=== PATIENT | male | born 1980 | race Caucasian/White ===

== ENCOUNTER 2020-02-16 09:42 | Observation (INO) | payer SELFPAY ==
[~2020-02-16] VITALS: Ht 172.7 cm; Wt 95.0 kg
--- NOTE | 2020-02-16 09:48 | NUR ---
PT AMBUALTED TO ROOM 14 WITH STEADY GIAT
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
[2020-02-16 11:10] LABS: HEMATOCRIT 40.9 % (39.0-50.0); HEMOGLOBIN 13.9 g/dl (14.0-18.0); IMMATURE GRANULOCYTES 0.3 % (0.0-5.0); MEAN CELL VOLUME 89.1 fL CALC (80.0-100.0); MEAN CORPUSCULAR HGB 30.3 pG CALC (26.0-32.0); NEUT# 4.31 thou/uL (1.82-7.42); RED BLOOD COUNT 4.59 mill/uL (4.70-6.10); RED CELL DISTRI WIDTH 12.7 % (11.5-15.5)
[2020-02-16 11:29] LABS: ALBUMIN 4.2 g/dL (3.2-5.0); ALKALINE PHOSPHATASE 68 u/l (38-126); ANION GAP 13 (6-22 (CALC)); BILIRUBIN, TOTAL 0.3 mg/dL (0.0-1.4); BUN 8 mg/dL (9-20); BUN/CREATININE RATIO 10 (12-20 (CALC)); CARBON DIOXIDE 27 mmol/l (22-30); CHLORIDE 106 mmol/l (95-108); CREATININE 0.8 mg/dL (0.7-1.3); GFR > 60 ML/MIN (>=60 (CALC)); GFR FOR AFR.AMER. > 60 ML/MIN (>=60 (CALC)); POTASSIUM 3.7 mmol/l (3.5-5.1); SGOT/AST 24 u/l (17-59); SODIUM 142 mmol/l (137-146); TOTAL PROTEIN 7.2 g/dL (6.3-8.2)
--- NOTE | 2020-02-16 11:30 | NUR ---
RECONNECTED PT TO MONITOR AND PT WAS ABLE TO PROVIDE URINE. CALL LIGHT WITHIN REACH
--- NOTE | 2020-02-16 12:27 | NUR ---
GAVE REPORT TO ILDEFONSO
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
--- NOTE | 2020-02-16 12:41 | NUR ---
PT TRANSPORTED TO [facility] SURG STABLE AND IN NO DISTRESS. CARE ASSUMED TO ILDEFONSO Admission Note Report Given to: ILDEFONSO Transported by: X Wheelchair Stretcher Transported with: X Nurse Transporter Patent IV O2 Foot Caster Location: ICU X MS2
[2020-02-16 12:55] LABS: URINE BILIRUBIN - DIPSTICK NEGATIVE (NEGATIVE); URINE BLOOD DIPSTICK NEGATIVE (NEGATIVE); URINE COLOR YELLOW; URINE GLUCOSE - DIPSTICK NEGATIVE (NEGATIVE); URINE KETONE NEGATIVE (NEGATIVE); URINE LEUK ESTERASE NEGATIVE (NEGATIVE); URINE NITRITE - DIPSTICK NEGATIVE (Negative); URINE PROTEIN - DIPSTICK NEGATIVE (NEG-TRACE); URINE SPECIFIC GRAVITY 1.025; URINE UROBILINOGEN - DIPSTICK 0.2 E.U./dL (0.2)
[2020-02-16 15:00] VITALS: BP 128/84
--- NOTE | 2020-02-16 15:57 | NUR ---
PRIOR TO ENTERING PATIENT ROOM THIS NURSE KNOCKED ON DOOR AND WHEN I ENTERED ROOM PATIENTS WAS FOUND TO BE IN BED WITH PATIENT AT THIS TIME. PATIENT WAS EDUCATED THAT FOR SAFTEY REASONS PATIENT SHOULD BE THE ONLY ONE IN THE PATIENTS BED. PATIENT VERBALIZED UNDERSTANDING AT THIS TIME. PATIENT AT THIS TIME WAS ASKED TO REMOVE ALL UNDER GARMENTS AND TO REMOVE WEDDING RING AT WHICH TIME HE GAVE TO HIS . PATIENT EXPRESSED CONCERN ABOUT THE SURGEON NOT SEEING HIM OF YET TO EXPLAIN WHAT THE ACTUAL PROCEEDURE WILL BE AND IT WAS EXPLAINED TO HIM THE SURGEON WOULD SEE HIM WHEN HE GETS INTO THE SURGERY DEPARTMENT. PATIENT VERBALIZED UNDERSTANDING AND IS READY FOR SURGERY AT THIS TIME.
--- NOTE | 2020-02-16 16:30 | NUR ---
PATIENT RESTING IN BED AT THIS TIME DENIES ANY PAIN CALL LIGHT WITHIN REACH. DR. LANCASTER IN TO SEE PT AND D/C SURGERY AT THIS TIME.
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
== END 2020-02-16 17:01 | disposition left against medical advice (07) | DRG 730 ==
LOC: ED 09:42 → ED-I 10:50 → ED 10:59 → MS2 11:00
PROVIDERS: Emergency Medicine; ADMIT Internal Medicine; ATTEND Internal Medicine
DX: S30.21XA Contusion of penis, initial encounter (principal); F15.10 Other stimulant abuse, uncomplicated; F17.210 Nicotine dependence, cigarettes, uncomplicated; X58.XXXA Exposure to other specified factors, initial encounter; Y93.89 Activity, other specified; Y92.74 Orchard as the place of occurrence of the external cause; Z20.822 Contact with and (suspected) exposure to COVID-19
CPT/HCPCS: G0378